=== PATIENT | male | born 1980 | race Caucasian/White ===

== ENCOUNTER 2019-09-14 08:23 | Emergency (ER) | payer SELFPAY ==
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
[2019-09-14 08:37] VITALS: BP 124/85; PULSE 80; RESP 13; TEMP 36.4; O2SAT 98
[2019-09-14 09:34] VITALS: TEMP 36.8
== END 2019-09-14 09:54 | disposition home or self-care (01) ==
LOC: ED 09:41
PROVIDERS: Emergency Provider Emergency Medicine
DX: T75.89XA Other specified effects of external causes, initial encounter (principal); X31.XXXA Exposure to excessive natural cold, initial encounter
CPT/HCPCS: 99281